=== PATIENT | male | born 1995 | race Caucasian/White ===

== ENCOUNTER 2017-02-28 14:18 | Inpatient (IN) | payer BC, OTHER ==
[~2017-02-28] VITALS: Ht 175.3 cm; Wt 59.0 kg
[2017-02-28] MEDS ORDERED: CLONIDINE HCL 0.1 MG TABLET PO PRN (21:00)
[2017-02-28] MEDS ORDERED: ONDANSETRON 4 MG/2 ML VIAL IM PRN (21:00)
[2017-02-28] MEDS ORDERED: MIRALAX 17 GM POWD.PACK PO PRN (21:00)
[2017-02-28] MEDS ORDERED: LORAZEPAM 1 MG TABLET PO PRN ×2 (21:00)
[2017-02-28] MEDS ORDERED: MAGNESIUM HYDROXIDE 30 ML LIQUID UDC PO PRN (21:00)
[2017-02-28] MEDS ORDERED: LORAZEPAM 2 MG/1 ML VIAL IM PRN (21:00)
[2017-02-28] MEDS ORDERED: IBUPROFEN 400 MG TABLET PO PRN (21:00)
[2017-02-28] MEDS ORDERED: ACETAMINOPHEN 325 MG TABLET PO PRN (21:00)
[2017-02-28] MEDS ORDERED: THIAMINE HCL 200 MG/2 ML VIAL IM ONE (21:00)
[2017-02-28] MEDS ORDERED: MAG HYDROX/AL HYDROX/SIMETH 30 ML LIQUID UDC PO PRN (21:00)
[2017-02-28] MEDS ORDERED: LOPERAMIDE HCL 2 MG CAPSULE PO PRN ×2 (21:00)
[2017-02-28] MEDS ORDERED: ONDANSETRON ODT 4 MG TAB.RAPDIS SL PRN (21:00)
[2017-02-28] MEDS ORDERED: diphenhydrAMINE 50 MG CAPSULE PO PRN (21:00)
--- NOTE | 2017-02-28 21:10 | NUR ---
Pre-admission assessment Patient is a 21-year old, male, seen at intake, AAOx4, no SOB and no anxiety noted at this time. Discussed with patient admission policies of the unit. Patient is coherent and able to respond to questions appropriately. Patient reported that he is [place], and is currently taking a break from college. Pt is ambulatory with steady gait. Pt reports using these substance daily: 1) ETOH-mostly beer and sometimes hard liquor/mixed drinks for 4-5 times a week, last use was 22-oz beer today at 1400. 2) Cocaine-usually 1/2 gm when drinking, also 4-5 times a week via snort. Last use was 02/27/2017. 3) Cannabis-Pt verbalized using "a joint or two" via smoke, every 2 weeks on average. Vital signs taken and as follows: LT=937/71, P=78, O2 sat on RA=98%, RR=20, T=98.1. Pt verbalized instructions and teachings regarding disposal of narcotic and other controlled home meds, unit protocols such as taking of vital signs Q4H and handling and disposal of contraband. Addendum: 03/01/17 at 0159 by ADALID AQUINO RN Correction: Patient reports using the substances with frequency reported and not daily.
[2017-02-28 21:12] LABS: *AMPHETAMINE, URINE NEGATIVE (NEGATIVE); *BARBITURATE, URINE NEGATIVE (NEGATIVE); *CANNABINOID, URINE POSITIVE (NEGATIVE); *COCCAINE, URINE POSITIVE (NEGATIVE); *OPIATE, URINE NEGATIVE (NEGATIVE); *PHENCYCLIDINE SCREEN,URINE NEGATIVE (NEGATIVE)
[2017-02-28 21:19] LABS: ETHANOL < 3 MG/DL (0-0)
[2017-02-28 21:23] LABS: ALANINE AMINOTRANSFERASE 20 U/L (16-63); ALKALINE PHOSPHATASE 106 U/L (50-136); AMYLASE 68 U/L (25-115); ASPARTATE AMINOTRANSFERASE 27 U/L (15-37); BILIRUBIN,TOTAL 1.1 mg/dL (0.2-1.0); CARBON DIOXIDE 31 mmol/L (21-32); CHLORIDE 96 mmol/L (98-107); CREATININE 1.1 mg/dL (0.6-1.3); GLUCOSE 95 mg/dL (74-106); MAGNESIUM 2.3 mg/dL (1.8-2.4); POTASSIUM 3.5 mmol/L (3.5-5.1); TOTAL PROTEIN, SERUM 9.2 g/dL (6.4-8.2); UREA NITROGEN, BLOOD 14 mg/dL (7-18)
[2017-02-28] MEDS ORDERED: CETI-102 PO (22:00)
[2017-02-28] MEDS ORDERED: LORAZEPAM 1 MG TABLET PO ONE (22:00)
--- NOTE | 2017-02-28 22:00 | NUR ---
ADMISSION NOTE :- HT - 5 FEET, 9 INCHES. WT - 130 POUNDS. B/P=129/77,T=97.6,P=73.R=16,O2 SAT= 97%. CIWA = 1. Admitting 21 y/o male to [facility] for ETOH dependency. Pt reports that he began drinking alcohol at the age of 16 but he was not drinking more regularly since he was 18 years old.He reports drinking approximately 10 drinks at least 4 to 5 times a week.His last drink was a 22 ounce can of beer that he drank at 1400 this afternoon.He also reports snorting 1 gram of cocaine once a week and smokes 0.5 grams of weed every other week.His longest period of sobriety was 2 weeks in May 2016.No prior history of detox noted.Pt does not have a PCP.Pt denies any medical/psychiatric history,has no known allergies to food or medications,placed on a regular diet and FULL CODE status.Pt is A/O X 4.Skin is intact,warm and dry to touch,abdomen is soft and palpable with bowel sounds present x 4,respirations are even and non labored,no c/o SOB noted,no c/o N/V/D noted.Pt oriented to room and unit,care plan and safety checks initiated,snacks provided.Dr Schaffer notified.No s/s of acute distress noted,all safety measures in place per hospital policy,bed is locked in the lowest position,with side rails up x 2.Call light kept in reach. All needs met and attended. Will continue to monitor closely. TREATMENT HX :- NONE DRUG USE HX:- 1) ALCOHOL - PT HAS BEEN DRINKING 10 DRINKS OF ALCOHOL 4 TO 5 TIMES A WEEK. LAST DRINK AT 1400 ON 02/28/17,22 OZ CAN OF BEER. 2) COCAINE - PT SNORTS 1 GRAM OF COCAINE EVERY WEEK. LAST USED 02/27/17. 3) MARIJUANA - PT SMOKES 0.5 GRAMS EVERY OTHER WEEK. LAST USED 02/23/17. Addendum: 02/28/17 at 2342 by TAMMY SEBASTIAN RN PT DENIES ANY HISTORY OF SEIZURES.
[2017-02-28] MEDS ORDERED: LORAZEPAM 1 MG TABLET ONE (22:03)
[2017-02-28 22:45] LABS: BASOPHILS % (AUTO) 0.4 % (0.0-2.0); HEMATOCRIT 48.6 % (40-50); HEMOGLOBIN 16.5 G/DL (14.0-18.0); LYMPHOCYTES % (AUTO) 29.8 % (20.5-51.5); MEAN CORPUSCULAR HEMOGLOBIN 31.6 UUG (27.0-31.0); MEAN CORPUSCULAR HGB CONC 34 g/dL (32.0-37.0); MEAN CORPUSCULAR VOLUME 93.1 FL (82.0-92.0); MONOCYTES % (AUTO) 8.6 % (0.0-11.0); NEUTROPHILS % (AUTO) 59.2 % (38.5-71.5); PLATELET COUNT (AUTO) 329 K/UL (150-450); RED BLOOD CELL COUNT(AUTO) 5.22 MIL/UL (4.7-6.1)
[2017-02-28 22:46] LABS: WHITE BLOOD COUNT (AUTO) 7.3 K/UL (4.0-11.2)
[2017-03-01] VITALS: BP 125/72
[2017-03-01 04:00] VITALS: BP 122/69
--- NOTE | 2017-03-01 06:11 | NUR ---
END OF SHIFT Pt is 21 y/o male admitted for ETOH dependency. Pt reports that he began drinking alcohol at the age of 16 but he was not drinking regularly since he was 18 years old.He reports drinking approximately 10 drinks at least 4 to 5 times a week.Also reported using cocaine and MJ. NKA,Pt placed on a regular diet and FULL CODE status.Pt is A/O X 4..No s/s of acute distress noted,no PRN meds given last night.One time dose of Ativan given as ordered.No PMH noted.Pt slept all night without any problem,slept 7 hrs,fluid intake was 1333 mls,voided x 2.All safety measures in place per hospital policy,bed is locked in the lowest position,with side rails up and padded x 2.Fall and seizure precautions maintained at all time.Call light kept in reach. All needs met and attended. Will continue to monitor closely.
--- NOTE | 2017-03-01 07:18 | NUR ---
START OF SHIFT Received report from night nurse. 21 year old male patient admitted on 02/28/17 for ETOH, Cocaine and Marijuana withdrawals. Pt denies past medical or psychiatric history and reports this is his first time in detox. Pt has not yet been started on a tapoer, PRN medications available. Pt did not receive PRN medications at night. Ativan 2mg one time administered as ordered by MD. Most recent CIWA is 1, Pt slept for 7 hours. V/S remain WNL. All needs met at this time, pt is resting in bed, RR even and unlabored. Safety measures in place, will continue to monitor.
[2017-03-01 08:04] VITALS: BP 107/61
[2017-03-01] MEDS: MULTIVITAMINS,THERAPEUTIC TABLET PO SCH (08:58)
[2017-03-01] MEDS: THIAMINE HCL 100 MG TABLET PO SCH (08:59)
[2017-03-01] MEDS: FOLIC ACID 1 MG TABLET PO SCH (08:59)
[2017-03-01] MEDS ORDERED: TUBERCULIN,PURIF.PROT.DERIV. 5 TU/0.1 ML TEST ID ONE (09:00)
[2017-03-01] MEDS ORDERED: IBUP-1953 PO (12:24)
[2017-03-01] MEDS ORDERED: DIPH50CA37 PO (12:24)
[2017-03-01] MEDS ORDERED: MULT-24 PO (12:24)
[2017-03-01] MEDS ORDERED: THIA100T13 PO (12:24)
[2017-03-01] MEDS ORDERED: FOLI1TAB16 PO (12:24)
[2017-03-01] MEDS ORDERED: HYDR25CA PO (12:24)
[2017-03-01 12:43] VITALS: BP 106/56
[2017-03-01 16:21] VITALS: BP 106/63
--- NOTE | 2017-03-01 18:59 | NUR ---
END OF SHIFT Endorsed to night nurse. 21 year old male patient admitted on 02/28/17 for ETOH, Cocaine and Marijuana withdrawals. Pt denies past medical or psychiatric history and reports this is his first time in detox. Pt is medically cleared for discharge tomorrow and does not present with acute s/s of withdrawals or discomfort. Most recent CIWA is 3 due to mild tremors and mild anxiety. Pt did not attend groups or activities and rested in bed throughout day. Pt encouraged to verbalize feelings. Tolerates fluids and food well. V/S remain WNL. All needs met at this time, pt is resting in bed, RR even and unlabored. Safety measures in place, night nurse will continue to monitor.
--- NOTE | 2017-03-01 19:50 | NUR ---
START OF SHIFT Received report from day shift nurse. Pt is lying in bed watching TV. He is a 21 yo male admitted to [facility] on 12/28 for ETOH dependence. He is A&O x3 and ambulatory. NKA, full code status, and on a regular diet. He denies any PMH. On admission her reported using ETOH 10 drinks 4-5 times per week, cocaine 1 gram per week, and marijuana. Pt was ordered PRN medications only. He is scheduled for discharge tomorrow. Pt denies s/s of withdrawal. He is resting comfortably in bed. Fall and seizure precautions in place. Bed is down with call light in reach.
[2017-03-01 20:00] VITALS: BP 108/54
[2017-03-02] VITALS: BP 97/52
--- NOTE | 2017-03-02 04:00 | NUR ---
DEAN dixonred DEAN ordered Q4HWA. Pt is lying in bed resting with eyes closed. Respirations even and unlabored. Vital signs obtained. Safety measures in place. Addendum: 03/02/17 at 0731 by OCHOA ALCALA RN 0400 Vitals signs refused.
[2017-03-02 06:06] LABS: HEPATITIS B SURFACE AG Negative (Negative)
--- NOTE | 2017-03-02 07:10 | NUR ---
END OF SHIFT Report provided to day shift nurse. Pt is lying in bed resting. He is a 21 yo male admitted to [facility] on 12/28 for ETOH dependence. He is A&O and ambulatory. NKA, full code status, and on a regular diet. He denies any PMH. On admission her reported using ETOH 10 drinks 4-5 times per week, cocaine 1 gram per week, and marijuana. Pt was ordered PRN medications only. He is scheduled for discharge today. Pt did not exhibit s/s of withdrawal. Last CIWA was 1. He drank 1094mL and slept for 6 hours. Fall and seizure precautions in place. Bed is down with call light in reach.
--- NOTE | 2017-03-02 07:15 | NUR ---
Start of shift note Pt was admitted for observation of ETOH, cocaine and marijuana withdrawal. Pt was on PRN medications only to manage his s/s of withdrawal and tolerated it well. Pt is a full code, on a regular diet and denies any allergies. Pt denies any PMhx. Pt is scheduled to discharge today to [facility]. Pt has no complaints at this time. Pt states that he feels ready for discharge. All needs addressed at this time. Will continue to monitor pt.
[2017-03-02 08:00] VITALS: BP 114/45
[2017-03-02] MEDS: MULTIVITAMINS,THERAPEUTIC TABLET PO SCH (08:10)
[2017-03-02] MEDS: FOLIC ACID 1 MG TABLET PO SCH (08:10)
[2017-03-02] MEDS: THIAMINE HCL 100 MG TABLET PO SCH (08:10)
--- NOTE | 2017-03-02 09:25 | NUR ---
Discharge note Pt was admitted for ETOH dependence. Pt has a CIWA score of 1 d/t mild anxiety. Pt VS are WNL. Pt LBM 03/02/17. Denies SI/HI. States that he feels ready for discharge and verbalized his understanding of the discharge instructions. Pt discharge instructions, prescriptions and all belongings returned to pt. Pt states he did not bring in any home meds. Pt ID band removed, pt ambulated off of unit, left facility via [facility] for [facility].
== END 2017-03-02 09:25 | disposition other institution (70) | DRG 897 ==
LOC: SRC 20:14
PROVIDERS: ADMIT Internal Medicine; ATTEND Internal Medicine
PROC: HZ2ZZZZ Detoxification Services for Substance Abuse Treatment (ICD-10-PCS; principal; 2017-02-28)
DX: F10.230 Alcohol dependence with withdrawal, uncomplicated (principal); F14.10 Cocaine abuse, uncomplicated; K70.9 Alcoholic liver disease, unspecified; F12.10 Cannabis abuse, uncomplicated; F17.290 Nicotine dependence, other tobacco product, uncomplicated; Y90.0 Blood alcohol level of less than 20 mg/100 ml; Z84.1 Family history of disorders of kidney and ureter
CPT/HCPCS: 36415; 80307; 80349; 80353; 83735; 85025; 86580; 86592; 86705; 86803; 87340; 87806; G0480